=== PATIENT | female | born 1960 | race Caucasian/White ===

== ENCOUNTER → 2016-12-17 | Outpatient (CLI) | payer OTHER ==
[~2016-12-17] MED LIST: ATEN-173 PO; ATEN50TA PO; ATOR-24 PO; CALC600T9 PO; CITA40TA12 PO; CITA40TA4 PO; ONDA4TAB10 SL; PRVC/40 PO
[2016-12-17 13:20] LABS: ALT/SGPT 32 U/L (12-78); AST/SGOT 18 U/L (15-37); BLOOD UREA NITROGEN 19 mg/dl (7-18); BUN/CREATININE RATIO 19.3 (10-20); CALCIUM 9.3 mg/dl (8.5-10.1); CARBON DIOXIDE 26 mmol/L (21-32); CHLORIDE 105 mmol/L (98-107); CREATININE 0.96 mg/dl (0.60-1.20); GLUCOSE 103 mg/dl (70-99); POTASSIUM 4.2 mmol/L (3.5-5.1); SODIUM 140 mmol/L (136-145)
[2016-12-17 13:23] LABS: ALB/GLOB RATIO 1.2 (0.9-2); ALKALINE PHOSPHATASE 57 U/L (45-117); CHOLESTEROL 179 mg/dl (0-200); CHOLESTEROL/HDL RATIO 2.9; HDL CHOLESTEROL 62 mg/dl; LDL CHOLESTEROL CALCULATED 79 mg/dl; TRIGLYCERIDES 188 mg/dl (0-150); VERY LOW DENSITY LIPOPROT CALC 38 mg/dl
== END | disposition home or self-care (01) ==
LOC: C.LABPVFM 07:39
PROVIDERS: ATTEND Family Medicine
DX: Z00.00 Encounter for general adult medical examination without abnormal findings (principal); I10 Essential (primary) hypertension; E78.00 Pure hypercholesterolemia, unspecified; F41.8 Other specified anxiety disorders

== ENCOUNTER → 2017-03-06 | Outpatient (CLI) | payer OTHER ==
[~2017-03-06] MED LIST changes: -ATEN-173 PO; -ATOR-24 PO; -CALC600T9 PO; -CITA40TA4 PO
--- NOTE | 2017-03-07 12:10 | MAMMOGRAPHY REPORT ---
BILATERAL DIGITAL SCREENING MAMMOGRAM TOMOSYNTHESIS WITH CAD: 03/06/2017 CLINICAL HISTORY: Routine screening examination. TECHNIQUE: Breast tomosynthesis in addition to standard 2D mammography was performed. Current study was also evaluated with a Computer Aided Detection (CAD) system. COMPARISON: Comparison is made to exams dated: 01/28/2015 mammogram, 02/03/2016 mammogram, 12/19/2012 ma mmogram, 12/14/2011 mammogram, 12/08/2010 mammogram, and 11/18/2009 mammogram - [facility]. BREAST COMPOSITION: There are scattered areas of fibroglandular density in both breasts. FINDINGS: There are a few stable benign-appearing microcalcifications in the breasts. No suspicious mass, architectural distortion or cluster of suspicious microcalcifications is seen. IMPRESSION: ACR BI-RADS CATEGORY 1: NEGATIVE There is no mammographic evidence of malignancy. A 1 year screening mammogram is recommended. The pa tient will receive written notification of the results. Approximately 10% of breast cancers are not detected with mammography. A negative mammographic report should not delay biopsy if a clinically suggestive mass is present. Trupti Acevedo M.D. ay/:03/06/2017 16:24:25 Box Spring Maker: Margy MERRILL(Mary)(Gerardo), [facility] letter sent: Normal 1/2 BI-RADS Code: ACR BI-RADS Category 1: Negative
== END | disposition home or self-care (01) ==
LOC: C.MAMM 15:58
PROVIDERS: ATTEND Family Medicine
DX: Z12.31 Encounter for screening mammogram for malignant neoplasm of breast (principal)

== ENCOUNTER → 2017-05-22 | Outpatient (CLI) | payer OTHER ==
[~2017-05-22] MED LIST changes: -ONDA4TAB10 SL
[2017-05-22 17:24] LABS: BASO % 0.3 %; BASO ABS # 0.01 K/uL (0-0.2); COMPLETE YES; EOS % 3.4 %; HEMATOCRIT 41.9 % (37-47); IG% 0.3 %; LYMPH % 14.8 %; LYMPH ABS # 0.48 K/uL (1.2-3.4); MEAN CELL VOLUME 87.8 fL (80-100); MEAN CORPUSCULAR HEMOGLOBIN 31.2 pg (25-34); MEAN CORPUSCULAR HGB CONC 35.6 g/dl (32-36); MEAN PLATELET VOLUME 10.9 fL (7.4-10.4); MONO % 15.7 %; NEUT % 65.5 %; PLATELET COUNT 214 K/uL (130-400); RED BLOOD COUNT 4.77 M/uL (4.2-5.4); WHITE BLOOD COUNT 3.25 K/uL (4.8-10.8)
[2017-05-22 17:33] LABS: BLOOD UREA NITROGEN 17 mg/dl (7-18); BUN/CREATININE RATIO 17.8 (10-20); CALCIUM 9.5 mg/dl (8.5-10.1); CARBON DIOXIDE 23 mmol/L (21-32); CHLORIDE 105 mmol/L (98-107); CREATININE 0.94 mg/dl (0.60-1.20); GLUCOSE 98 mg/dl (70-99); POTASSIUM 3.3 mmol/L (3.5-5.1); SODIUM 138 mmol/L (136-145)
== END | disposition home or self-care (01) ==
LOC: C.LABPVFM 10:12
PROVIDERS: ATTEND Nurse Practitioner Family
DX: R19.7 Diarrhea, unspecified (principal)

== ENCOUNTER 2017-05-31 08:52 | Emergency (ER) | payer OTHER ==
[~2017-05-31] VITALS: Ht 167.6 cm; Wt 88.3 kg
[~2017-05-31 08:52] MED LIST changes: -CITA40TA12 PO
[2017-05-31 08:56] VITALS: TEMP 36.6; Ht 167.6 cm; Wt 88.3 kg
[2017-05-31] MEDS ORDERED: SODIUM CHLORIDE 0.9% 1000ML 1,000 ML IV STA (09:17)
[2017-05-31] MEDS ORDERED: CITA40TA12 PO (09:18)
[2017-05-31] MEDS ORDERED: ONDANSETRON INJ 2 MG/ML 2 ML VIAL IV STA (09:20)
[2017-05-31 09:46] LABS: HEMATOCRIT 41.6 % (37-47); MEAN CELL VOLUME 87.2 fL (80-100); MEAN CORPUSCULAR HEMOGLOBIN 30.2 pg (25-34); MEAN CORPUSCULAR HGB CONC 34.6 g/dl (32-36); MEAN PLATELET VOLUME 9.8 fL (7.4-10.4); PLATELET COUNT 295 K/uL (130-400); RED BLOOD COUNT 4.77 M/uL (4.2-5.4); WHITE BLOOD COUNT 9.93 K/uL (4.8-10.8)
[2017-05-31] MEDS ORDERED: OPTIRAY 320 IV PRN (10:00)
[2017-05-31 10:05] LABS: BUN/CREATININE RATIO 16.7 (10-20); CREATININE 1.1 mg/dl (0.60-1.20); POTASSIUM 4.1 mmol/L (3.5-5.1)
[2017-05-31 10:08] LABS: ALB/GLOB RATIO 1.1 (0.9-2)
[2017-05-31 10:09] LABS: BASO % 0.1 %; BASO ABS # 0.01 K/uL (0-0.2); COMPLETE YES; EOS % 0.7 %; IG% 0.1 %; MONO % 6.7 %; NEUT % 85.4 %; TOXIC GRANULATION 1+
[2017-05-31 11:27] VITALS: BP 110/64; PULSE 64; O2SAT 94
--- NOTE | 2017-05-31 11:30 | DIAGNOSTIC IMAGING REPORT ---
ABDOMEN AND PELVIS CT WITH IV CONTRAST CT DOSE: 526.72 mGy.cm HISTORY: low abd pain, diarrhea TECHNIQUE: Multiaxial CT images of the abdomen and pelvis were performed following the use of intravenous contrast. A dose lowering technique was utilized adhering to the principles of ALARA. COMPARISON STUDY: None. FINDINGS: The lung bases are clear. No pneumoperitoneum. No pneumatosis. No suspicious lytic or blastic osseous lesions. Tiny hiatus hernia. Tiny fat-containing umbilical hernia. No retroperitoneal lymphadenopathy. The bladder is unremarkable. The uterus is surgically absent. The liver, gallbladder, spleen, adrenal glands, pancreas, and kidneys are unremarkable. Liquid stool seen within the colon. Colonic diverticulosis. Normal appendix. There are suggestion of minimal thickening and inflammatory change surrounding a short segment of bowel within the right lower quadrant on images 72 through 75. This favors a mild ileitis. Proximal to this decompressed loop of bowel there is a slightly distended fluid-filled segment of small bowel measure up to 3 cm. IMPRESSION: 1. Suggestion of minimal thickening and inflammatory change surrounding a short segment of bowel within the right lower quadrant. This likely represents a mild ileitis. This favors infectious/inflammatory change. 2. Liquid stool throughout the colon consistent with the suspected gastroenteritis/ileitis. 3. Single borderline distended loop of small bowel within the deep pelvis proximal to the thickened loop of small bowel. This could represent a low-grade partial small bowel obstruction due to the thickened loop of small bowel. 4. Normal appendix. Electronically signed by: Rodney Jesus M.D. 05/31/2017 11:29 AM Dictated Date/Time: 05/31/2017 11:18 AM
[2017-05-31] MEDS ORDERED: ONDA4TAB10 SL (11:52)
--- NOTE | 2017-05-31 11:56 | EMERGENCY ROOM VISIT NOTE ---
History First contact with patient: 09:01 Chief Complaint: VOMITING Stated Complaint: VOMITING,STOMACH CRAMPING,DIARRHEA Nursing Triage Summary: pt reports 2 weeks ago had flu like sx was tx by PCP for this with IV fluid and blood work. then started 2 days ago with NVD again took immodium with no help unable to keep food or liquid down History of Present Illness The patient is a 56 year old female who presents to the Emergency Room with complaints of abdominal cramps, vomiting and diarrhea. The patient reports that her symptoms initially began last week. She states that she developed some diarrhea approximately one week and a half ago and was seen by her primary care provider at that time and given Imodium and IV fluids. She reports that she improved, however her symptoms returned yesterday. She reports she has had some diarrhea, vomiting and lower abdominal cramping. She rates her discomfort a 6/10. She states that she has had frequent episodes of both diarrhea and vomiting. She has been able to keep down some fluids, but no solid food. She denies any recent antibiotic use, food exposures, unknown water sources or travel. She does report she has had giardia in the past. She denies any fevers /chills or urinary symptoms. Review of Systems A complete 10 point review of systems was reviewed with the patient with pertinent positives and negatives as per history of present illness. All else were negative. Past Medical/Surgical History Medical Problems: (1) Achilles rupture, left (2) Benign hypertension (3) Carpal tunnel syndrome (4) Hyperlipidemia (5) Hysterectomy (6) Influenza A Family History Diabetes mellitus FH: hypertension Social History Smoking Status: Never Smoker Alcohol Use: occasionally Marital Status: Housing Status: lives with family Occupation Status: employed Current/Historical Medications Scheduled Atenolol (Tenormin), 50 MG PO DAILY Citalopram Hydrobromide (Celexa), 40 MG PO DAILY Ondasetron Odt (Zofran Odt), 4 MG SL Q6H Pravastatin Sod (Pravastatin Sodium), 40 MG PO DAILY Physical Exam Vital Signs Date Time Temp Pulse Resp B/P (MAP) Pulse Ox O2 Delivery O2 Flow Rate FiO2 05/31/17 11:27 64 18 110/64 94 Room Air 05/31/17 08:56 36.6 51 18 102/68 98 Room Air Physical Exam VITALS: Vitals are noted on the nurse's note and reviewed by myself. Vital signs stable. GENERAL: This is a 56-year-old female, in no acute distress, nondiaphoretic, well-developed well-nourished. SKIN: Capillary reflex less than 2 seconds. HEENT: Normocephalic. PERRLA. Mucous membranes moist. Neck is supple without nuchal rigidity. HEART: Regular rate and rhythm without murmurs gallops or rubs. LUNGS: Clear to auscultation bilaterally without wheezes, rales or rhonchi. ABDOMEN: Positive bowel sounds x 4. Soft, mild tenderness across the lower abdomen. No guarding or rebound tenderness. NEURO: Patient was alert and oriented to person place and time. Medical Decision & Procedures ER Provider Diagnostic Interpretation: ABDOMEN AND PELVIS CT WITH IV CONTRAST CT DOSE: 526.72 mGy.cm HISTORY: low abd pain, diarrhea TECHNIQUE: Multiaxial CT images of the abdomen and pelvis were performed following the use of intravenous contrast. A dose lowering technique was utilized adhering to the principles of ALARA. COMPARISON STUDY: None. FINDINGS: The lung bases are clear. No pneumoperitoneum. No pneumatosis. No suspicious lytic or blastic osseous lesions. Tiny hiatus hernia. Tiny fat-containing umbilical hernia. No retroperitoneal lymphadenopathy. The bladder is unremarkable. The uterus is surgically absent. The liver, gallbladder, spleen, adrenal glands, pancreas, and kidneys are unremarkable. Liquid stool seen within the colon. Colonic diverticulosis. Normal appendix. There are suggestion of minimal thickening and inflammatory change surrounding a short segment of bowel within the right lower quadrant on images 72 through 75. This favors a mild ileitis. Proximal to this decompressed loop of bowel there is a slightly distended fluid-filled segment of small bowel measure up to 3 cm. IMPRESSION: 1. Suggestion of minimal thickening and inflammatory change surrounding a short segment of bowel within the right lower quadrant. This likely represents a mild ileitis. This favors infectious/inflammatory change. 2. Liquid stool throughout the colon consistent with the suspected gastroenteritis/ileitis. 3. Single borderline distended loop of small bowel within the deep pelvis proximal to the thickened loop of small bowel. This could represent a low-grade partial small bowel obstruction due to the thickened loop of small bowel. 4. Normal appendix. Laboratory Results 05/31/17 09:30 Red Blood Count 4.77, Mean Corpuscular Volume 87.2, Mean Corpuscular Hemoglobin 30.2, Mean Corpuscular Hemoglobin Concent 34.6, Mean Platelet Volume 9.8, Neutrophils (%) (Auto) 85.4, Lymphocytes (%) (Auto) 7.0, Monocytes (%) (Auto) 6.7, Eosinophils (%) (Auto) 0.7, Basophils (%) (Auto) 0.1, Neutrophils # (Auto) 8.47, Lymphocytes # (Auto) 0.70, Monocytes # (Auto) 0.67, Eosinophils # (Auto) 0.07, Basophils # (Auto) 0.01 05/31/17 09:30 Test 05/31/17 09:30 White Blood Count 9.93 K/uL (4.8-10.8) Red Blood Count 4.77 M/uL (4.2-5.4) Hemoglobin 14.4 g/dL (12.0-16.0) Hematocrit 41.6 % (37-47) Mean Corpuscular Volume 87.2 fL (80-100) Mean Corpuscular Hemoglobin 30.2 pg (25-34) Mean Corpuscular Hemoglobin Concent 34.6 g/dl (32-36) Platelet Count 295 K/uL (130-400) Mean Platelet Volume 9.8 fL (7.4-10.4) Neutrophils (%) (Auto) 85.4 % Lymphocytes (%) (Auto) 7.0 % Monocytes (%) (Auto) 6.7 % Eosinophils (%) (Auto) 0.7 % Basophils (%) (Auto) 0.1 % Neutrophils # (Auto) 8.47 K/uL (1.4-6.5) Lymphocytes # (Auto) 0.70 K/uL (1.2-3.4) Monocytes # (Auto) 0.67 K/uL (0.11-0.59) Eosinophils # (Auto) 0.07 K/uL (0-0.5) Basophils # (Auto) 0.01 K/uL (0-0.2) RDW Standard Deviation 41.4 fL (36.4-46.3) RDW Coefficient of Variation 13.0 % (11.5-14.5) Immature Granulocyte % (Auto) 0.1 % Immature Granulocyte # (Auto) 0.01 K/uL (0.00-0.02) Toxic Granulation 1+ Anion Gap 8.0 mmol/L (3-11) Est Creatinine Clear Calc Drug Dose 62.4 ml/min Estimated GFR () 64.1 Estimated GFR (Non- 55.3 BUN/Creatinine Ratio 16.7 (10-20) Calcium Level 9.0 mg/dl (8.5-10.1) Total Bilirubin 1.0 mg/dl (0.2-1) Aspartate Amino Transf (AST/SGOT) 18 U/L (15-37) Alanine Aminotransferase (ALT/SGPT) 41 U/L (12-78) Alkaline Phosphatase 71 U/L (45-117) Total Protein 7.5 gm/dl (6.4-8.2) Albumin 3.9 gm/dl (3.4-5.0) Globulin 3.6 gm/dl (2.5-4.0) Albumin/Globulin Ratio 1.1 (0.9-2) Lipase 167 U/L (73-393) Medications Administered Medications (Trade) Dose Ordered Sig/Bethany Route Start Time Stop Time Status Last Admin Dose Admin Sodium Chloride 1,000 ml @ 999 mls/hr Q1H1M STAT IV 05/31/17 09:17 10 10:17 DC 05/31/17 09:41 999 MLS/HR Ondansetron HCl (Zofran Inj) 4 mg NOW STAT IV 05/31/17 09:20 05/31/17 09:21 DC 05/31/17 09:39 4 MG ED Course The patient was evaluated as above. Labs were drawn and IV access was obtained. Patient was medicated with IV fluids and Zofran. CT of the abdomen and pelvis was performed and read by radiology as above. Patient was reevaluated and states she feels much better. Findings were discussed with the patient at this time. Discharge instructions were reviewed with the patient. The patient verbalized understanding of my assessment and treatment plan and was discharged home in good condition. Medical Decision Differential diagnosis includes gastroenteritis, colitis, diverticulitis, Giardia, small bowel obstruction, C. difficile colitis, among others. The patient is a 56-year-old female who presents today complaining of abdominal cramping, diarrhea and vomiting. Labs revealed no leukocytosis, anemia or concerning electrolyte abnormalities. CT scan was performed due to the patient' s lower abdominal tenderness and revealed evidence of gastroenteritis/ileitis. There was one borderline dilated loop of bowel with some concern for possible partial small bowel obstruction. However, the patient is still moving her bowels and her nausea has resolved at this time. I do not feel this represents bowel obstruction but did recommended the patient keep a clear liquid diet for the next 1-2 days. The patient was not able to provide a stool sample throughout her stay and was given an order to have this testing done as an outpatient. She was given a prescription for Zofran. She was advised to follow -up with her primary care provider. She verbalized understanding of my assessment and treatment plan was discharged home in good condition. Based on the patient's presentation and work up, I feel the patient is stable for outpatient treatment. The patient was educated to return to the emergency department for any worsening of their current condition or new/concerning symptoms. She will follow up with her PCP. The patient was independently evaluated by Dr. Costa, ED attending physician , who agreed with my assessment and treatment plan. Medication Reconcilliation Current Medication List: was personally reviewed by me Blood Pressure Screening Patient's blood pressure: Normal blood pressure Impression Primary Impression: Acute gastroenteritis Departure Information Dispostion Home / Self-Care Condition GOOD Prescriptions Ondasetron Odt (ZOFRAN ODT) 4 Mg Tab 4 MG SL Q6H for Nausea, #15 TAB Prov: Zulay Flores .JOAQUINA 05/31/17 Referrals Lux Bryson M.D. (PCP) Patient Instructions My [facility] Additional Instructions You have been prescribed Zofran to be used for any nausea or vomiting. Take as prescribed. For pain control, you can use the following [id number] medicines (if >12 yo): - Regular strength (325mg/tab) Tylenol (acetaminophen) 2 tabs every 4-6 hours as needed. Do not exceed 12 tablets in a 24 hour period. Avoid taking more than 4 grams (4000 mg) of Tylenol per day. This includes any other sources of acetaminophen you may take on a regular basis. - Regular strength (200 mg/tab) Advil (ibuprofen) 1-2 tabs every 4-6 hours as needed. Do not exceed a dose of 3200 mg per day. Rest and drink plenty of fluids. You should keep a clear liquid diet for the next 48 hours. Follow-up with your primary care provider early next week for a recheck. Return to the emergency department with worsening vomiting, worsening pain, fevers or any other new/concerning symptoms.
== END 2017-05-31 12:09 | disposition home or self-care (01) ==
LOC: C.EDB 08:54
DX: K52.9 Noninfective gastroenteritis and colitis, unspecified (principal); I10 Essential (primary) hypertension; E78.5 Hyperlipidemia, unspecified; G56.00 Carpal tunnel syndrome, unspecified upper limb; Z90.710 Acquired absence of both cervix and uterus; Z83.3 Family history of diabetes mellitus; Z82.49 Family history of ischemic heart disease and other diseases of the circulatory system

== ENCOUNTER → 2017-06-13 | Day surgery (SDC) | payer OTHER ==
[2017-06-10 09:02] VITALS: Ht 167.6 cm; Wt 86.4 kg
[~2017-06-13] VITALS: Ht 167.6 cm; Wt 86.4 kg
[~2017-06-13] MED LIST changes: +ATEN-173 PO; -ATEN50TA PO; +ATOR-24 PO; +CALC600T9 PO; +CITA40TA4 PO; +LIDOCAINE HCL 2% 2 ML VIAL (20MG/ML) ONE; +PROPOFOL IV EMULSION 10 MG/ML 20 ML VIAL IV ONE; -PRVC/40 PO; +SODIUM CHLORIDE 0.9% 500ML 500 ML IV ONE
[2017-06-13 15:15] VITALS: TEMP 36.6
--- NOTE | 2017-06-13 15:57 | Endo History and Physical ---
History & Physical Date of Service: Jun 13, 2017. Chief Complaint: ABNORMAL CT OF THE ILEUM, DIARRHEA AND ABD PAIN Referring Physician: DR. ZHU History of Present Illness 56 yo CF who presents for colonoscopy secondary to abnormal CT scan of the ileum. Past Surgical History Hx Cardiac Surgery: No Hx Internal Defibrillator: No Hx Pacemaker: No Hx Abdominal Surgery: Yes (TAHBSO) Hx of Implantable Prosthesis: No Hx Post-Op Nausea and Vomiting: No Hx Cancer Surgery: No Hx Thoracic Surgery: No Hx Orthopedic: Yes (LEFT ACHILLES TENDON REPAIR, LEFT/RT CTR) Hx Urinary Tract Surgery: No Family History IBD Social History Smoking Status: Former Smoker Hx Substance Use: No Hx Alcohol Use: Yes (OCCASIONALLY) Allergies Coded Allergies: No Known Allergies (Verified , 06/13/17) Current Medications Reported Home Medications Medications Dose Route/Sig Max Daily Dose Days Date Category Calcium + D (Calcium Carbonate-Vitamin D) 1 Tab Tab 1 Tab PO BID 06/10/17 Reported Citalopram Hydrobromide (Citalopram) 40 Mg Tab 1 Tab PO QAM 90 06/10/17 Reported Lipitor (Atorvastatin Calcium) 40 Mg Tab 40 Mg PO QPM 06/10/17 Reported Tenormin (Atenolol) 25 Mg Tab 2 Tab PO QAM 06/10/17 Reported Vital Signs Weight (Kilograms): 86.36 Height (Feet): 5 Height (Inches): 6 Date Time Temp Pulse Resp B/P (MAP) Pulse Ox O2 Delivery O2 Flow Rate FiO2 06/13/17 15:15 36.6 60 18 124/80 (95) 95 Room Air Physical Exam General Appearance: WD/WN, no apparent distress Respiratory/Chest: Auscultation: breath sounds normal Cardiovascular: Heart Auscultation: RRR Abdomen: Bowel Sounds: normal Inspection & Palpation: soft, non-distended, no tenderness, guarding & rebound Assessment and Plan Assessment: 56 yo CF who presents for colonoscopy secondary to abnormal CT scan of the ileum. Plan: Proceed with colonoscopy.
--- NOTE | 2017-06-13 16:24 | Discharge Instructions ---
Endoscopy Patient Instructions Date / Procedure(s) Performed Jun 13, 2017. Colonoscopy Allergy Information Coded Allergies: No Known Allergies (Verified , 06/13/17) Discharge Date / Findings Jun 13, 2017. Random ileum biopsies Random colon biopsies Stool aspirate collected Internal Hemorrhoids Medication Instructions OK to resume all medications today as prescribed Reported Home Medications Medications Dose Route/Sig Max Daily Dose Days Date Category Calcium + D (Calcium Carbonate-Vitamin D) 1 Tab Tab 1 Tab PO BID 06/10/17 Reported Citalopram Hydrobromide (Citalopram) 40 Mg Tab 1 Tab PO QAM 90 06/10/17 Reported Lipitor (Atorvastatin Calcium) 40 Mg Tab 40 Mg PO QPM 06/10/17 Reported Tenormin (Atenolol) 25 Mg Tab 2 Tab PO QAM 06/10/17 Reported Provider Instructions Activity Restrictions - No exercising or heavy lifting for 24 hours. - Do not drink alcohol the day of the procedure. - Do not drive a car or operate machinery until the day after the procedure. - Do not make any important decisions or sign important papers in 24 hours after the procedure. Following Day: - Return to full activity which may include returning to work/school. Diet Start your diet with liquids and light foods (jello, soup, juice, toast). Then eat your usual diet if not nauseated. Treatment For Common After Affects For mild abdominal pain, bloating, or excessive gas: - Rest - Eat lightly - Lie on right side Follow-Up Information Follow-up with DR. ZHU as scheduled Anesthesia Information What You Should Know You have had a procedure that required some medicine to reduce anxiety and discomfort. This treatment is called moderate sedation. After receiving the treatment, you may be sleepy, but you will be able to breathe on your own. The effects of the treatment may last for several hours. Follow these instructions along with Activity/Diet recommendations noted above: * Do NOT do anything where dizziness or clumsiness would be dangerous. * Rest quietly at home today, then you can be up and about tomorrow. * Have a responsible person stay with you the rest of today. * You may have had an I.V. today. If so, you may take the dressing off later today. Recommendations Call your doctor if: * Trouble breathing * Continuous vomiting for more than 24 hours * Temperature above 101 degrees * Severe abdominal pain or bloating * Pain not relieved by pain medicine ordered * There is increased drainage or redness from any incision * A large amount of rectal bleeding greater than 2-3 tablespoons. (If you had a polyp/s removed or have hemorrhoids, a small amount of blood - from the rectum is to be expected.) * You have any unanswered questions or concerns. IN THE EVENT OF A SERIOUS EMERGENCY, GO TO THE NEAREST EMERGENCY ROOM Your discharge instructions were prepared by provider Phoenix Mata. Patient Instructions Signature Page Ayesha Castano Patient (or Guardian) Signature/Date: I have read and understand the instructions given to me by my caregivers. Caregiver/RN/Doctor Signature/Date: The above-named patient and/or guardian has received patient instructions on this date. + Original Patient Signature Page (only) stays with chart. Please make copy for patient.
--- NOTE | 2017-06-13 16:33 | GI REPORT ---
Procedure Date: 06/13/2017 3:39 PM Procedure: Colonoscopy Indications: Abnormal CT of the GI tract Medicines: Monitored Anesthesia Care Complications: No immediate complications. Estimated Blood Loss: Estimated blood loss: none. Procedure: Pre-Anesthesia Assessment: - Prior to the procedure, a History and Physical was performed, and patient medications and allergies were reviewed. The patient's tolerance of previous anesthesia was also reviewed. The risks and benefits of the procedure and the sedation options and risks were discussed with the patient. All questions were answered, and informed consent was obtained. Prior Anticoagulants: The patient has taken no previous anticoagulant or antiplatelet agents. ASA Grade Assessment: II - A patient with mild systemic disease. After reviewing the risks and benefits, the patient was deemed in satisfactory condition to undergo the procedure. After I obtained informed consent, the scope was passed under direct vision. Throughout the procedure, the patient's blood pressure, pulse, and oxygen saturations were monitored continuously. The scope was introduced through the anus and advanced to the terminal ileum. The colonoscopy was performed without difficulty. The patient tolerated the procedure well. The quality of the bowel preparation was good. The terminal ileum, ileocecal valve, appendiceal orifice, and rectum were photographed. Findings: The terminal ileum appeared normal. Biopsies were taken with a cold forceps for histology. The colon (entire examined portion) appeared normal. Several random biopsies were obtained with cold forceps for histology in the entire colon. Fluid aspiration for cytology was performed. Non-bleeding internal hemorrhoids were found during retroflexion. The hemorrhoids were small. Impression: - The examined portion of the ileum was normal. Biopsied. - The entire examined colon is normal. Fluid aspiration performed. - Non-bleeding internal hemorrhoids. - Several random biopsies were obtained in the entire colon. Recommendation: - Resume previous diet. - Continue present medications. - Await pathology results. - Return to GI office as previously scheduled. Phoenix Mata DO 06/13/2017 4:33:17 PM This report has been signed electronically. Note Initiated On: 06/13/2017 3:39 PM I attest to the content of the Intraoperative Record and orders documented therein, exceptions below
[2017-06-13 16:57] VITALS: BP 133/96; PULSE 57; O2SAT 97
--- NOTE | 2017-06-13 16:59 | Anesthesiology Progress Note ---
Anesthesia Post Op Note Date & Time Jun 13, 2017 at 16:58 Vital Signs Pain Intensity: 3 Vital Signs Past 12 Hours Date Time Temp Pulse Resp B/P (MAP) Pulse Ox O2 Delivery O2 Flow Rate FiO2 06/13/17 16:57 57 16 133/96 (108) 97 Room Air 06/13/17 16:42 65 16 129/86 (100) 94 Room Air 06/13/17 16:27 73 16 106/76 (86) 93 Nasal Cannula 2 06/13/17 15:15 36.6 60 18 124/80 (95) 95 Room Air Notes Mental Status: alert / awake / arousable, participated in evaluation Pt Amnestic to Procedure: Yes Nausea / Vomiting: adequately controlled Pain: adequately controlled Airway Patency, RR, SpO2: stable & adequate BP & HR: stable & adequate Hydration State: stable & adequate Anesthetic Complications: no major complications apparent
== END | disposition home or self-care (01) ==
LOC: C.GI 15:02
PROVIDERS: ATTEND Internal Medicine
DX: K52.9 Noninfective gastroenteritis and colitis, unspecified (principal); R93.3 Abnormal findings on diagnostic imaging of other parts of digestive tract; K64.8 Other hemorrhoids; Z87.891 Personal history of nicotine dependence; I10 Essential (primary) hypertension; F32.9 Major depressive disorder, single episode, unspecified; Z68.30 Body mass index [BMI] 30.0-30.9, adult; Z98.890 Other specified postprocedural states

== ENCOUNTER → 2017-07-02 | Outpatient (CLI) | payer OTHER ==
[~2017-07-02] MED LIST changes: -LIDOCAINE HCL 2% 2 ML VIAL (20MG/ML) ONE; -PROPOFOL IV EMULSION 10 MG/ML 20 ML VIAL IV ONE; -SODIUM CHLORIDE 0.9% 500ML 500 ML IV ONE
== END | disposition home or self-care (01) ==
LOC: C.LAB 16:35
PROVIDERS: ATTEND Physician Assistant
DX: R19.7 Diarrhea, unspecified (principal)

== ENCOUNTER → 2017-07-04 | Outpatient (CLI) | payer OTHER ==
[~2017-07-04] MED LIST changes: +OPTIRAY 320 IV PRN
[2017-07-04 14:44] LABS: COMPLETE YES; HEMATOCRIT 39.3 % (37-47); IG% 0.3 %; LYMPH % 9.7 %; LYMPH ABS # 0.88 K/uL (1.2-3.4); MEAN CELL VOLUME 88.9 fL (80-100); MEAN CORPUSCULAR HEMOGLOBIN 29.4 pg (25-34); MEAN CORPUSCULAR HGB CONC 33.1 g/dl (32-36); MEAN PLATELET VOLUME 10.6 fL (7.4-10.4); MONO % 3.1 %; NEUT % 86.9 %; PLATELET COUNT 277 K/uL (130-400); RED BLOOD COUNT 4.42 M/uL (4.2-5.4); WHITE BLOOD COUNT 9.05 K/uL (4.8-10.8)
--- NOTE | 2017-07-04 14:57 | DIAGNOSTIC IMAGING REPORT ---
CT ABD/PELVIS IV AND ORAL CONT (enterography study) CLINICAL HISTORY: R10.9 Abdominal painR19.[id number] scan COMPARISON STUDY: 05/31/2017 TECHNIQUE: Following the IV administration of 100 mL of Optiray-320, CT scan of the abdomen and pelvis was performed from the lung bases to the proximal femurs. Images are reviewed in the axial, sagittal, and coronal planes. IV contrast was administered without complication. A dose lowering technique was utilized adhering to the principles of ALARA. CT DOSE: 571.01 mGy.cm FINDINGS: Lower chest: There are minor dependent atelectatic changes. Liver: 6 there is mild hepatic steatosis. No focal masses are visualized. Gallbladder: Unremarkable. Spleen: Normal in size and attenuation. Pancreas: Unremarkable. Adrenal glands: Unremarkable. Kidneys: There is symmetric renal cortical enhancement. The kidneys are normal in size without hydronephrosis. Bowel: There are no transition zones to indicate bowel obstruction. The appendix appears normal. There is a single short segment bowel loop within the low anterior pelvis demonstrating mild hyperenhancement. This appears to represent a collapsed small bowel loop with focal peristalsis. This is unlikely to represent true pathologic bowel wall thickening or pathologic bowel wall enhancement. The previously queried right lower quadrant inflammatory changes, appear to have resolved. Peritoneum: There is no intraperitoneal free air or abdominal ascites. There is a tiny fat-containing umbilical hernia. Vasculature: The abdominal aorta is normal in course and caliber. Adenopathy: None. Pelvic viscera: The uterus appears surgically absent. Skeletal structures: No destructive osseous lesions are seen. IMPRESSION: 1. No acute abdominal or pelvic findings 2. No evidence of bowel obstruction. No evidence of free air 3. Normal appendix 4. No inflammatory small bowel findings are identified Electronically signed by: Naresh Campbell M.D. 07/04/2017 2:56 PM Dictated Date/Time: 07/04/2017 2:48 PM
[2017-07-04 15:14] LABS: ALT/SGPT 20 U/L (12-78); AST/SGOT 7 U/L (15-37); BLOOD UREA NITROGEN 22 mg/dl (7-18); BUN/CREATININE RATIO 21.6 (10-20); CARBON DIOXIDE 26 mmol/L (21-32); CHLORIDE 106 mmol/L (98-107); CREATININE 1.01 mg/dl (0.60-1.20); GLUCOSE 115 mg/dl (70-99); POTASSIUM 4.4 mmol/L (3.5-5.1); SODIUM 140 mmol/L (136-145)
[2017-07-04 15:17] LABS: ALB/GLOB RATIO 1.2 (0.9-2); ALKALINE PHOSPHATASE 67 U/L (45-117)
== END | disposition home or self-care (01) ==
LOC: C.CTS 12:58
PROVIDERS: ATTEND Physician Assistant
DX: R10.9 Unspecified abdominal pain (principal); R93.3 Abnormal findings on diagnostic imaging of other parts of digestive tract; R19.7 Diarrhea, unspecified

== ENCOUNTER → 2017-12-27 | Outpatient (CLI) | payer OTHER ==
[~2017-12-27] MED LIST changes: -OPTIRAY 320 IV PRN
[2017-12-27 13:03] LABS: ALBUMIN 4.2 gm/dl (3.4-5.0); AST/SGOT 25 U/L (15-37); BLOOD UREA NITROGEN 18 mg/dl (7-18); CALCIUM 8.9 mg/dl (8.5-10.1); CARBON DIOXIDE 28 mmol/L (21-32); CHOLESTEROL 126 mg/dl (0-200); CREATININE 0.83 mg/dl (0.60-1.20); GLUCOSE 98 mg/dl (70-99); POTASSIUM 4.2 mmol/L (3.5-5.1); SODIUM 140 mmol/L (136-145)
[2017-12-27 13:08] LABS: ALKALINE PHOSPHATASE 77 U/L (45-117); ALT/SGPT 38 U/L (12-78); LDL CHOLESTEROL CALCULATED 47 mg/dl; TOTAL PROTEIN 7.4 gm/dl (6.4-8.2)
== END | disposition home or self-care (01) ==
LOC: C.LABPVFM 08:09
PROVIDERS: ATTEND Family Medicine
DX: I10 Essential (primary) hypertension (principal); E78.00 Pure hypercholesterolemia, unspecified; F41.8 Other specified anxiety disorders; K52.9 Noninfective gastroenteritis and colitis, unspecified

== ENCOUNTER → 2018-03-11 | Outpatient (CLI) | payer OTHER ==
--- NOTE | 2018-03-11 16:19 | MAMMOGRAPHY REPORT ---
BILATERAL DIGITAL SCREENING MAMMOGRAM TOMOSYNTHESIS WITH CAD: 03/11/2018 CLINICAL HISTORY: Routine screening. Patient has no complaints. TECHNIQUE: The study was acquired using full field digital technology and interpreted from soft copy. Breast tomosynthesis in addition to standard 2D mammography was performed. Current study was also ev aluated with a Computer Aided Detection (CAD) system. COMPARISON: Comparison is made to exams dated: 01/10/2018 mammogram, 03/06/2017 mammogram, 02/03/2016 m ammogram, 01/28/2015 mammogram, and 01/22/2014 mammogram - [facility]. BREAST COMPOSITION: There are scattered areas of fibroglandular density in both breasts. FINDINGS: There is stable nodular asymmetry in the lateral right breast. A few scattered benign-appe aring calcifications. No suspicious mass, architectural distortion or cluster of microcalcifications is seen. IMPRESSION: ACR BI-RADS CATEGORY 1: NEGATIVE There is no mammographic evidence of malignancy. A 1 year screening mammogram is recommended.( [id number]) The patient will receive written notification of the results. Some breast cancers are not detected with mammography. A negative mammographic report should not aurora y biopsy if a clinically suggestive mass is present. Trupti Acevedo M.D. ay/:03/11/2018 08:43:57 Budget Manager: RT Yordan(Mary)(M), [facility] letter sent: Normal 1/2 BI-RADS Code: ACR BI-RADS Category 1: Negative
== END | disposition home or self-care (01) ==
LOC: C.MAMM 08:10
PROVIDERS: ATTEND Family Medicine
DX: Z12.31 Encounter for screening mammogram for malignant neoplasm of breast (principal)